=== PATIENT | female | born 2000 | race Caucasian/White ===

== ENCOUNTER 2025-06-19 07:20 | Inpatient (IN) ==
[2025-06-19] MEDS ORDERED: LIDOCAINE 1% LOCAL 20 ML VIAL INFIL PRN (17:39)
[2025-06-19] MEDS ORDERED: OXYTOCIN 30 UNITS/NSS 30 UNITS/500 ML BAG IV PRN (17:39)
--- NOTE | 2025-06-19 18:19 | History & Physical Report ---
Date of Service June 19, 2025 Assessment & Plan (1) Gestational diabetes: Plan: Poorly compliant patient with limited care Daily marijuana use has been set up for elective induction due to a high census we were unable to start this in the morning and the patient requested dinner on arrival will start induction when able Admission and Anticipated Discharge Date Admission Date: June 19, 2025 History of Present Illness Primary Care Provider: NO PCP [facility] [address] [place] [address] Obstetrics Visit Signed Patient: JENY KOEHLER Service Date: 06/18/25 MR#: [id number] Ref Phy: Jean-Paul Pillai Acct ID:[id number] Kathy Phy: PCP,NO Date: 2000 Location: [facility] cc: Jean-Paul Pillai CRNP~ *NOTICE TO RECEIVING DEMOCRAT/AGENCY This information is strictly Confidential and protected under [place] law. [place] law prohibits you from making any further disclosure of this information unless further disclosure is expressly permitted by the written consent of the person to whom it pertains or is authorized by law. A general authorization for the release of medical or other information is not sufficient for this purpose. Physician Practice accepts no responsibility if the information is made available to any other person, INCLUDING THE PATIENT. Medical Credit Product Analyst Credit Product Analyst Determination Visit Includes a Sensitive Exam of the Pt/Pt Requested: Yes Pt Informed of [facility]'s Recommendation for a Medical Credit Product Analyst: Yes Presence of a Medical Credit Product Analyst: Accepts Visit SHERI Calculator Estimated Delivery Date Method Current WG Current Estimate 06/24/25 LMP (Certain) 39w 1d Other Estimates 06/30/25 Ultrasound #1 38w 2d LMP: 09/17/24 : 3 Full term: 1 Premature: 0 Total Number of Induced Abortions: 0 Total Number of Spontaneous Abortions: 1 Ectopics: 0 Multiple births: 0 Number of Living Children: 1 and Delivery Plans Transfer into care at 33+ weeks--poor pnc Marijuana use--nausea, anxiety/depression was told ok in by her prior OB --discussed risks and rec d/c. Fob "hole in heart" has not had echo yet unable to schedule d/t late getstational age upn MATTHEW (? echo) Hx seizures none in 3 years Hx of MRSA Considering sterilization MA- FORM SIGNED 05/16/2025 Hepatitis B non-immune Allergies Allergy/AdvReac Type Severity Reaction Status Date / Time No Known Allergies Allergy Verified 06/18/25 14:28 Home Medications Medication Instructions Recorded Confirmed Type ferrous sulfate 1 tab PO DAILY 05/08/25 06/18/25 History promethazine 25 mg tablet 25 mg PO TID PRN nausea and 05/16/25 06/18/25 Rx vomiting #20 tabs blood sugar diagnostic (Accu-Chek #150 ea 05/24/25 06/18/25 Rx Guide test strips) blood-glucose meter (Accu-Chek #1 ea 05/24/25 06/18/25 Rx Guide Glucose Meter) lancets (Accu-Chek Softclix #100 ea 05/24/25 06/18/25 Rx Lancets) Patient History Medical History (Updated 06/15/25 @ 21:33 by Azra Presley RN) PTSD (post-traumatic stress disorder) Depression with anxiety Person under investigation for COVID-19 Seizure Varicella vaccine Surgical History S/P wisdom tooth extraction Family History Grandmother (Maternal) Myocardial infarction Breast cancer Denies family history of Colon cancer Ovarian cancer Prostate cancer Social History Smoking Status: Current every day smoker Tobacco Type: Cigarettes packs per day: 1; Cigarettes Per Day: 2; Second Hand Exposure: Yes; Do You Dip or Chew Tobacco: No; Hx Alcohol Use: No Hx Substance Use: Yes Last Used Substance: Days (ago) Substance Use Type Other:: 1 Preferred Language: Occitan Communication Ability: Effective Visual Impairment: No Limitations Hearing Ability: Normal Education Department Registrar Required: No Beliefs That Will Affect Care: None marital status: Single marital status details: jasmina Adrian (21) Mother: Nel Koehler Current Living Situation: Family Current Living Situation Comment: brother, mother, fiance, daughter current occupational status: unemployed Feels Safe at Home: Yes Dental Care, Regularly: Yes Physical Activity Frequency: Does not Exercise Assistive Devices: Glasses Physical Exam Constitutional: WD/WN, vitals as above well developed and well nourished Respiratory: normal respiratory effort, lungs clear to auscultation normal respiratory effort Cardiovascular: RRR, no murmur, no edema Gastrointestinal (Abdomen): normal bowel sounds, soft, nontender, no hepatosplenomegaly Results & Data Vital Signs (Past 12 Hours) Vital Signs Pulse BP Pulse Ox 06/19/25 18:11 82 100 06/19/25 18:05 76 104/67 Code Status & VTE Plan VTE Prophylaxis Plan VTE Prophylaxis will be ordered: No Coding Level of Care Code None Diagnoses Gestational diabetes O24.419
[2025-06-19 18:39] LABS: Hematocrit (blood only) 25.9 % (37.0-47.0); Hemoglobin 8.6 g/dl (12.0-16.0); Mean Corpuscular Hemoglobin 28.7 pg (25.0-34.0); Mean Corpuscular Volume 86.3 fL (80.0-100.0); Platelet Count 218 K/uL (130-400); RDW Standard Deviation 42.1 fL (36.4-46.3); Red Blood Count 3.00 M/uL (4.20-5.40); White Blood Count 8.12 K/ul (4.8-10.8)
[2025-06-19] MEDS: CALCIUM CARBONATE 500 MG CHEWABLE TAB ONE (18:47)
[2025-06-19] MEDS: LACTATED RINGER'S 1,000 ML IV PRN (19:33)
[2025-06-19] MEDS: CALCIUM CARBONATE 500 MG CHEWABLE TAB PO PRN (23:33)
[2025-06-20] MEDS: OXYTOCIN 30 UNITS/NSS 30 UNITS/500 ML BAG IV PRN ×2 (00:54→14:34)
[2025-06-20] MEDS: ONDANSETRON INJ 2 MG/ML 2 ML VIAL ONE (04:56)
[2025-06-20] MEDS: ONDANSETRON INJ 2 MG/ML 2 ML VIAL IV STA (05:06)
--- NOTE | 2025-06-20 07:44 | Anesthesiology Consultation ---
Date of Service June 20, 2025 Assessment & Plan Chart Review Chart Review: Patient NOT seen in Pre Admission Testing and Acceptable Risk for Labor Epidural Consults Requested medical & cardiac ASA ASA2 Proposed Anesthesia Anesthesia Type: Labor Epidural Risk / Benefits Reviewed With: PT / POA / Parent / Guardian, Accepts Plan and Informed Consent Obtained History Height/Weight Height: 5 ft 2 in Weight: 79.379 kg Allergies Allergy/AdvReac Type Severity Reaction Status Date / Time No Known Allergies Allergy Verified 06/18/25 14:28 Medications Home Medications Medication Instructions Recorded Confirmed Last Taken ferrous sulfate 1 tab PO DAILY 05/08/25 06/18/25 05/14/25 promethazine 25 mg tablet 25 mg PO TID PRN nausea and 05/16/25 06/18/25 Unknown vomiting #20 tabs blood sugar diagnostic (Accu-Chek #150 ea 05/24/25 06/18/25 Unknown Guide test strips) blood-glucose meter (Accu-Chek #1 ea 05/24/25 06/18/25 Unknown Guide Glucose Meter) lancets (Accu-Chek Softclix #100 ea 05/24/25 06/18/25 Unknown Lancets) Active Medications Generic Name Dose Route Start Last Admin Trade Name Freq PRN Reason Stop Dose Admin Calcium Carbonate 500 mg 06/19/25 20:00 06/19/25 23:33 Calcium Carbonate 500 Mg Chewable Tab PO 07/19/25 19:59 500 mg Q4 PRN Administration Indigestion Lactated Ringer's 1,000 mls @ 125 mls/hr 06/19/25 17:39 06/20/25 05:17 Lr IV 06/21/25 17:38 125 mls/hr .Q8H PRN Administration L&D Protocol Protocol Oxytocin 30 units in 500 mls @ 11 mls/hr 06/19/25 19:36 06/20/25 06:59 Pitocin 30 Units/Nss IV 06/21/25 19:35 0.66 units/hr .Q24H PRN 11 mls/hr Labor Induction/Augmentation Titration Protocol 0.66 UNITS/HR NPO Date Last Intake of Fluids: 06/20/25 Time Last Intake of Fluids: 07:00 Date Last Intake of Solids: 06/19/25 Time Last Intake of Solids: 18:00 Past Medical History Medical History PTSD (post-traumatic stress disorder) Depression with anxiety Person under investigation for COVID-19 Seizure Varicella vaccine Exercise / Class Metabolic Activity 1 > 8 Run/Swim/Ski/Tennis Past Family History Family History Grandmother (Maternal) Myocardial infarction Breast cancer Denies family history of Colon cancer Ovarian cancer Prostate cancer Past Surgical History Surgical History S/P wisdom tooth extraction Past Anesthesia History No Hx of Anesthesia Complications and No Family Hx of Anesthesia Complications History of PONV No Hx of PONV and No Hx of Motion Sickness Social History Smoking Status: Never smoker Smoking cigarettes per day: 2 Do You Dip or Chew Tobacco: No Hx Alcohol Use: No Hx Substance Use: Yes substance use type: marijuana Substance Use Type Other:: 1 Last Used Substance: Days (ago) Last Used Substance Other:: "a couple weeks ago" Review of Systems ROS Unobtainable: All systems reviewed & are unremarkable except as noted in HPI & below Constitutional: see below Physical Exam Vital Signs Last Vital Signs Temp 36.8 C 06/20/25 03:50 Pulse 74 06/20/25 07:12 Resp 18 06/20/25 07:00 BP 98/59 L 06/20/25 07:12 Pulse Ox 100 06/19/25 20:06 ENMT Mouth: no TMJ abnormality Thyromental Distance: > or= 3.5 Finger Breadths Mallampati Class: II Neck normal visual inspection and trachea midline; neck extension not limited Respiratory normal respiratory effort Auscultation: lungs clear to auscultation bilaterally Cardiovascular Rate/Rhythm: regular rate and regular rhythm Heart Sounds: no murmur Musculoskeletal Spine: normal cervical ROM Extremities: full ROM of extremities Neurologic moves all extremities Psychiatric Orientation: alert and oriented x 3 Testing Laboratory Results 06/19/25 18:24
[2025-06-20 07:58] LABS: Appearance Urine Clear (Clear); Glucose Urine UA Negative (Negative)
[2025-06-20] MEDS: BUPIVACAINE 0.25% PF 30 ML VIAL ONE (08:01)
[2025-06-20] MEDS: fentANYL 2 MCG/ML BUPIVacaine 0.125%-NSS 100ML BAG ONE (08:01)
[2025-06-20] MEDS: LIDOCAINE 2%/EPINEPHRINE 1:200,000 20 ML PF ONE (08:02)
[2025-06-20] MEDS ORDERED: NALOXONE HCL 1 MG in SODIUM CHLORIDE 0.9% 1,000 ML IV PRN (08:16)
[2025-06-20] MEDS ORDERED: ROPIVACAINE 0.5% PF 5 MG/ML 20 ML VIAL EPI PRN (08:16)
[2025-06-20] MEDS ORDERED: NALBUPHINE HCL INJ 10 MG/ML AMP IV PRN (08:16)
[2025-06-20] MEDS ORDERED: fentANYL 2 MCG/ML BUPIVacaine 0.125%-NSS 100ML BAG EPI PRN (08:16)
[2025-06-20] MEDS ORDERED: diphenhydrAMINE 50 MG/ML VIAL IV PRN (08:16)
[2025-06-20] MEDS ORDERED: NALOXONE HCL 0.4 MG/1 ML VIAL/CARP IV PRN (08:16)
[2025-06-20] MEDS ORDERED: LIDOCAINE 2% MPF LOCAL 5 ML VIAL EPI PRN (08:16)
[2025-06-20] MEDS ORDERED: SODIUM CHLORIDE 0.9% PF INJ 10 ML VIAL EPI PRN (08:16)
[2025-06-20] MEDS ORDERED: BUPIVACAINE 0.25% PF 30 ML VIAL EPI PRN (08:16)
[2025-06-20] MEDS: BUPIVACAINE 0.25% PF 30 ML VIAL EPI STA (08:27)
[2025-06-20] MEDS: SODIUM CHLORIDE 0.9% PF INJ 10 ML VIAL EPI STA (08:28)
[2025-06-20] MEDS: LIDOCAINE 2%/EPINEPHRINE 1:200,000 20 ML PF EPI STA (08:28)
[2025-06-20 08:33] LABS: Amphetamines+Metham, Urine Neg (Neg); MDMA (Ecstacy), Urine Neg (Neg); Marijuana, Urine Pos (Neg)
[2025-06-20] MEDS: ONDANSETRON INJ 2 MG/ML 2 ML VIAL IV PRN (10:44)
--- NOTE | 2025-06-20 15:38 | Labor Progress Brief Note ---
Date of Service June 20, 2025 Subjective Presented to bedside for recurrent variable decelerations. Pitocin discontinued and an IUPC and FSE placed. Assessment & Plan (1) Gestational diabetes: Plan: Presented bedside for recurrent variable decelerations. Good variability noted. Pitocin discontinued which showed improvement of the decelerations. Will continue to monitor. Having adequate cervical change. FSE and IUPC placed. Vitals within normal limit Gestational diabetes mellitus control: diet-controlled Trimester: third trimester Qualified Code(s): O24.410 - Gestational diabetes mellitus in , diet controlled (2) Encounter for induction of labor: Admission and Anticipated Discharge Date Admission Date: June 19, 2025 Physical Exam Genitourinary: Manual OB Exam: + cervical dilation 5 cm, + cervical effacement 50%, + station -2 and + amniotic fluid clear OB Exam Monitor Tracing: + external FHT monitor used, + external uterine monitor used, + category I, + category II, + normal FHT variability and + variable decelerations Results & Data Vital Signs (Past 12 Hours) Vital Signs Temp Pulse Resp BP Pulse Ox 06/20/25 15:34 61 91/51 L 06/20/25 15:32 60 99 06/20/25 15:27 62 99 06/20/25 15:22 64 97 06/20/25 15:18 93 H 101/62 06/20/25 15:17 78 97 06/20/25 15:16 67 06/20/25 15:16 75 96/59 L 86 L 06/20/25 15:12 74 97 06/20/25 15:10 77 83 L 06/20/25 15:07 66 100 06/20/25 15:05 65 86 L 06/20/25 15:04 62 89/53 L 06/20/25 15:02 64 94 06/20/25 15:00 22 06/20/25 15:00 22 06/20/25 14:58 99 H 85 L 06/20/25 14:57 77 99 06/20/25 14:53 69 86 L 06/20/25 14:52 74 99 06/20/25 14:49 94 H 97/53 L 06/20/25 14:47 94 H 93 06/20/25 14:46 68 83 L 06/20/25 14:42 95 H 97 06/20/25 14:37 97 H 98 06/20/25 14:33 83 111/61 06/20/25 14:32 72 97 06/20/25 14:30 18 06/20/25 14:30 18 06/20/25 14:27 96 H 100 06/20/25 14:22 65 99 06/20/25 14:19 106 H 104/63 06/20/25 14:17 122 H 95 06/20/25 14:12 133 H 91 06/20/25 14:10 96 H 84 L 06/20/25 14:07 65 99 06/20/25 14:05 74 111/65 06/20/25 14:04 76 83/49 L 06/20/25 14:03 92 H 82/48 L 06/20/25 14:02 83 95 06/20/25 14:00 22 06/20/25 14:00 22 06/20/25 13:57 67 100 06/20/25 13:52 99 06/20/25 13:52 78 06/20/25 13:52 90 87 L 06/20/25 13:48 77 95/57 L 06/20/25 13:47 63 100 06/20/25 13:42 88 94 06/20/25 13:41 37.0 C 06/20/25 13:37 70 100 06/20/25 13:32 73 98 06/20/25 13:31 74 88 L 06/20/25 13:30 22 06/20/25 13:30 22 06/20/25 13:27 62 100 06/20/25 13:22 68 99 06/20/25 13:19 71 106/56 L 06/20/25 13:18 84 84 L 06/20/25 13:17 82 85 L 06/20/25 13:12 68 100 06/20/25 13:07 76 100 06/20/25 13:03 86 104/56 L 06/20/25 13:02 85 100 06/20/25 13:01 94 H 87 L 06/20/25 12:57 75 98 06/20/25 12:52 100 06/20/25 12:52 91 H 06/20/25 12:52 70 87 L 06/20/25 12:48 112 H 110/57 L 06/20/25 12:47 116 H 100 06/20/25 12:42 90 99 09/04/25 12:37 82 88 L 06/20/25 12:35 81 98/56 L 06/20/25 12:33 70 87 L 06/20/25 12:31 77 100 06/20/25 12:30 18 06/20/25 12:30 18 06/20/25 12:28 68 87 L 06/20/25 12:26 59 L 100 06/20/25 12:21 69 99 06/20/25 12:18 67 101/60 06/20/25 12:16 71 100 06/20/25 12:11 71 100 06/20/25 12:06 71 99 06/20/25 12:03 74 97/60 L 06/20/25 12:01 58 L 99 06/20/25 12:00 20 06/20/25 12:00 20 06/20/25 11:56 69 98 06/20/25 11:51 66 100 06/20/25 11:48 63 102/65 06/20/25 11:46 62 100 06/20/25 11:41 68 99 06/20/25 11:36 63 100 06/20/25 11:33 68 101/67 06/20/25 11:31 65 100 06/20/25 11:30 20 06/20/25 11:30 20 06/20/25 11:26 59 L 95 06/20/25 11:21 61 97 06/20/25 11:18 63 109/71 06/20/25 11:16 75 96 06/20/25 11:11 59 L 99 06/20/25 11:06 69 100 06/20/25 11:03 75 103/59 L 06/20/25 11:01 65 100 06/20/25 11:00 20 06/20/25 11:00 20 06/20/25 10:56 67 100 06/20/25 10:55 65 89 L 06/20/25 10:51 74 100 06/20/25 10:48 61 91/54 L 06/20/25 10:46 66 100 06/20/25 10:43 66 90/52 L 06/20/25 10:41 78 100 06/20/25 10:38 61 96/55 L 06/20/25 10:36 63 99 06/20/25 10:34 58 L 95/55 L 09/04/25 10:31 65 100 06/20/25 10:30 18 06/20/25 10:30 18 06/20/25 10:29 58 L 90/55 L 06/20/25 10:27 60 87/50 L 06/20/25 10:26 61 98 06/20/25 10:21 36.9 C 71 99 06/20/25 10:20 76 88 L 06/20/25 10:18 69 108/64 06/20/25 10:16 82 98 06/20/25 10:13 88 103/68 06/20/25 10:11 69 100 06/20/25 10:08 71 101/58 L 06/20/25 10:06 72 99 06/20/25 10:05 81 87 L 06/20/25 10:03 90 107/69 06/20/25 10:01 72 97 06/20/25 10:00 18 06/20/25 10:00 18 06/20/25 09:56 63 98 06/20/25 09:53 81 102/57 L 06/20/25 09:51 77 97 06/20/25 09:48 74 95/51 L 06/20/25 09:46 76 98 06/20/25 09:45 18 06/20/25 09:45 18 06/20/25 09:44 72 93/55 L 06/20/25 09:41 62 96 06/20/25 09:39 63 96/59 L 06/20/25 09:36 65 96 06/20/25 09:35 64 93/62 L 06/20/25 09:31 67 94 06/20/25 09:28 60 96/58 L 06/20/25 09:26 65 96 06/20/25 09:23 60 93/57 L 06/20/25 09:21 61 96 06/20/25 09:18 64 93/59 L 06/20/25 09:16 62 96 06/20/25 09:15 18 06/20/25 09:15 18 06/20/25 09:13 56 L 92/56 L 06/20/25 09:11 61 95 06/20/25 09:08 67 91/57 L 06/20/25 09:06 65 96 06/20/25 09:03 63 94/60 L 06/20/25 09:01 76 98 06/20/25 08:59 70 106/61 06/20/25 08:56 74 100 06/20/25 08:53 72 106/56 L 06/20/25 08:51 71 98 06/20/25 08:49 62 106/57 L 06/20/25 08:48 83 88/52 L 06/20/25 08:46 73 98 06/20/25 08:45 18 06/20/25 08:45 18 06/20/25 08:44 69 78/42 L 06/20/25 08:41 98 H 99 06/20/25 08:39 99 H 113/66 06/20/25 08:36 74 98 06/20/25 08:33 107 H 114/58 L 06/20/25 08:31 71 98 06/20/25 08:30 18 06/20/25 08:30 18 06/20/25 08:28 92 H 101/56 L 06/20/25 08:26 73 99 06/20/25 08:23 85 101/61 06/20/25 08:21 69 99 06/20/25 08:17 75 107/58 L 06/20/25 08:16 68 100 06/20/25 08:15 18 06/20/25 08:15 18 06/20/25 08:15 71 18 106/70 06/20/25 08:13 89 111/67 06/20/25 08:11 100 06/20/25 08:11 63 06/20/25 08:11 60 109/63 06/20/25 08:10 18 06/20/25 08:10 18 06/20/25 08:09 63 99/60 L 06/20/25 08:07 60 105/60 06/20/25 08:06 84 100 06/20/25 08:05 86 20 111/64 06/20/25 08:03 75 112/66 06/20/25 08:01 72 110/68 100 06/20/25 07:59 75 105/62 06/20/25 07:58 88 126/80 06/20/25 07:56 87 99 06/20/25 07:55 82 123/85 06/20/25 07:54 83 59 L 06/20/25 07:51 84 100 06/20/25 07:30 18 06/20/25 07:30 18 06/20/25 07:15 18 06/20/25 07:15 36.9 C 18 06/20/25 07:12 74 98/59 L 06/20/25 07:00 18 06/20/25 07:00 18 06/20/25 06:56 71 94/54 L 06/20/25 06:00 18 06/20/25 06:00 06/20/25 05:55 63 91/54 L 06/20/25 05:00 18 06/20/25 05:00 18 06/20/25 04:55 81 102/69 06/20/25 03:56 76 113/68 06/20/25 03:50 18 06/20/25 03:50 36.8 C 18 Coding Level of Care Code None Diagnoses Diet controlled gestational diabetes mellitus (GDM) in third trimester O24.410 Gestational diabetes mellitus control: diet-controlled Trimester: third trimester Encounter for induction of labor Z34.90
[2025-06-20] MEDS ORDERED: DIPHTHER/TETAN/PERTUS Vaccine (Tdap, Adol/Adult) 0.5mL IM ONE (16:26)
[2025-06-20] MEDS ORDERED: HYDROCORTISONE ACETATE 25 MG SUPP PR PRN (16:26)
[2025-06-20] MEDS ORDERED: OXYTOCIN 30 UNITS/NSS 30 UNITS/500 ML BAG IV PRN (16:26)
--- NOTE | 2025-06-20 16:42 | Delivery Summary ---
Vaginal Delivery Summary Date of Service June 20, 2025 Vaginal Delivery Summary Patient progressed to 10 cm dilated, 100% effaced, -1 station posterior intact perineum with epidural anesthesia delivery of viable with weight and Apgars pending. Head of the delivered without difficulty quickly followed by shoulders and body. was noted to have good tone without spontaneous cry and after approximately 30 seconds of stimulation the cord was doubly clamped and cut taken to the waiting nursery staff. Cord blood obtained and attention turned deliver the placenta was delivered intact three- vessel cord gentle cord traction. Inspection of perineum vagina cervix there is noted to be no lacerations. Sponge and instrument counts are correct at the completion of the case. Both mother and stable in the immediate postdelivery timeframe. No complications noted and blood loss per QBL [facility] Vaginal Delivery Charge Delivery Type Details: [facility]
[2025-06-20] MEDS: SODIUM CHLORIDE 0.9% PF INJ 10 ML VIAL ONE (17:44)
[2025-06-20] MEDS: IBUPROFEN 600 MG TAB PO PRN (17:55)
--- NOTE | 2025-06-20 18:02 | Anesthesia Procedure Note ---
Date of Service June 20, 2025 Anesthesia Post Epidural Note Vital Signs Vital Signs: Temp Pulse Resp BP Pulse Ox 37.0 C 85 16 101/65 97 06/20/25 13:41 06/20/25 17:54 06/20/25 17:09 06/20/25 17:54 06/20/25 16:23 Notes Mental Status: alert / awake / arousable and participated in evaluation Nausea / Vomiting: adequately controlled Pain: adequately controlled Airway Patency, RR, SpO2: stable & adequate BP & HR: stable & adequate Hydration State: stable & adequate Neuraxial Anesthesia: was administered and sensory block is resolving Anesthetic Complications: no major complications apparent Epidural: Removed without complications and With tip intact
[2025-06-20] MEDS: SERTRALINE HCL 50 MG TABLET PO SCH (18:42)
[2025-06-20] MEDS: ACETAMINOPHEN 325 MG TAB PO PRN (21:22)
[2025-06-20] MEDS: DOCUSATE SODIUM 100 MG CAP PO SCH (21:24)
--- NOTE | 2025-06-20 22:03 | Hospitalist Progress Note ---
Date of Service June 20, 2025 Assessment & Plan (1) care following vaginal delivery: Admission and Anticipated Discharge Date Admission Date: June 19, 2025 Subjective Pt is a 35 year old female , at 39 wks 2 dys. She is post op 1 day after an induced labor and delivery. Pt is resting comfortably in the AM Pt further denies any symptoms of SOB, Chest Pain, NVD, and/or LE Edema or Pain. Results & Data Results & Data Vital Signs (Past 12 Hours) Vital Signs Temp Pulse Pulse Resp BP BP Pulse Ox 06/20/25 20:00 36.6 C 78 18 106/74 99 06/20/25 19:09 75 116/68 06/20/25 19:05 36.8 C 16 06/20/25 18:54 77 113/56 L 06/20/25 18:39 95 H 108/55 L 06/20/25 18:24 78 105/65 06/20/25 18:09 18 06/20/25 18:09 76 104/71 06/20/25 17:54 85 101/65 06/20/25 17:39 16 06/20/25 17:39 85 107/67 06/20/25 17:24 63 113/77 06/20/25 17:09 16 06/20/25 17:09 54 L 96/58 L 06/20/25 16:54 20 06/20/25 16:54 68 103/63 06/20/25 16:39 16 06/20/25 16:39 59 L 96/60 L 06/20/25 16:24 22 06/20/25 16:24 76 106/61 06/20/25 16:23 78 97 06/20/25 16:18 77 97 06/20/25 16:13 130 H 98 06/20/25 16:11 26 H 06/20/25 16:11 26 H 06/20/25 16:08 132 H 89 L 06/20/25 16:04 99 H 105/63 06/20/25 16:02 133 H 100 06/20/25 15:57 78 100 06/20/25 15:54 22 06/20/25 15:54 22 06/20/25 15:52 82 98 06/20/25 15:49 71 119/76 06/20/25 15:47 61 97 06/20/25 15:42 91 H 89 L 06/20/25 15:39 80 84 L 06/20/25 15:37 66 97 06/20/25 15:34 61 91/51 L 06/20/25 15:32 60 99 06/20/25 15:30 18 06/20/25 15:30 18 06/20/25 15:27 62 99 06/20/25 15:22 64 97 06/20/25 15:18 93 H 101/62 06/20/25 15:17 78 97 06/20/25 15:16 67 06/20/25 15:16 75 96/59 L 86 L 06/20/25 15:12 74 97 06/20/25 15:10 77 83 L 06/20/25 15:07 66 100 06/20/25 15:05 65 86 L 06/20/25 15:04 62 89/53 L 06/20/25 15:02 64 94 06/20/25 15:00 22 06/20/25 15:00 22 06/20/25 14:58 99 H 85 L 06/20/25 14:57 77 99 06/20/25 14:53 69 86 L 06/20/25 14:52 74 99 06/20/25 14:49 94 H 97/53 L 06/20/25 14:47 94 H 93 06/20/25 14:46 68 83 L 06/20/25 14:42 95 H 97 06/20/25 14:37 97 H 98 06/20/25 14:33 83 111/61 06/20/25 14:32 72 97 06/20/25 14:30 18 06/20/25 14:30 18 06/20/25 14:27 96 H 100 06/20/25 14:22 65 99 06/20/25 14:19 106 H 104/63 06/20/25 14:17 122 H 95 06/20/25 14:12 133 H 91 06/20/25 14:10 96 H 84 L 06/20/25 14:07 65 99 06/20/25 14:05 74 111/65 06/20/25 14:04 76 83/49 L 06/20/25 14:03 92 H 82/48 L 06/20/25 14:02 83 95 06/20/25 14:00 22 06/20/25 14:00 22 06/20/25 13:57 67 100 06/20/25 13:52 99 06/20/25 13:52 78 06/20/25 13:52 90 87 L 06/20/25 13:48 77 95/57 L 06/20/25 13:47 63 100 06/20/25 13:42 88 94 06/20/25 13:41 37.0 C 06/20/25 13:37 70 100 06/20/25 13:32 73 98 06/20/25 13:31 74 88 L 06/20/25 13:30 22 06/20/25 13:30 22 06/20/25 13:27 62 100 06/20/25 13:22 68 99 06/20/25 13:19 71 106/56 L 06/20/25 13:18 84 84 L 06/20/25 13:17 82 85 L 06/20/25 13:12 68 100 06/20/25 13:07 76 100 06/20/25 13:03 86 104/56 L 06/20/25 13:02 85 100 06/20/25 13:01 94 H 87 L 06/20/25 12:57 75 98 06/20/25 12:52 100 06/20/25 12:52 91 H 06/20/25 12:52 70 87 L 06/20/25 12:48 112 H 110/57 L 06/20/25 12:47 116 H 100 06/20/25 12:42 90 99 06/20/25 12:37 82 88 L 06/20/25 12:35 81 98/56 L 06/20/25 12:33 70 87 L 06/20/25 12:31 77 100 06/20/25 12:30 18 06/20/25 12:30 18 06/20/25 12:28 68 87 L 06/20/25 12:26 59 L 100 06/20/25 12:21 69 99 06/20/25 12:18 67 101/60 06/20/25 12:16 71 100 06/20/25 12:11 71 100 06/20/25 12:06 71 99 06/20/25 12:03 74 97/60 L 06/20/25 12:01 58 L 99 06/20/25 12:00 20 06/20/25 12:00 20 09/04/25 11:56 69 98 06/20/25 11:51 66 100 06/20/25 11:48 63 102/65 06/20/25 11:46 62 100 06/20/25 11:41 68 99 06/20/25 11:36 63 100 06/20/25 11:33 68 101/67 06/20/25 11:31 65 100 06/20/25 11:30 20 06/20/25 11:30 20 06/20/25 11:26 59 L 95 06/20/25 11:21 61 97 06/20/25 11:18 63 109/71 06/20/25 11:16 75 96 06/20/25 11:11 59 L 99 06/20/25 11:06 69 100 06/20/25 11:03 75 103/59 L 06/20/25 11:01 65 100 06/20/25 11:00 20 06/20/25 11:00 20 06/20/25 10:56 67 100 06/20/25 10:55 65 89 L 06/20/25 10:51 74 100 06/20/25 10:48 61 91/54 L 06/20/25 10:46 66 100 06/20/25 10:43 66 90/52 L 06/20/25 10:41 78 100 06/20/25 10:38 61 96/55 L 06/20/25 10:36 63 99 06/20/25 10:34 58 L 95/55 L 06/20/25 10:31 65 100 06/20/25 10:30 18 06/20/25 10:30 18 06/20/25 10:29 58 L 90/55 L 06/20/25 10:27 60 87/50 L 06/20/25 10:26 61 98 06/20/25 10:21 36.9 C 71 99 06/20/25 10:20 76 88 L 06/20/25 10:18 69 108/64 06/20/25 10:16 82 98 06/20/25 10:13 88 103/68 06/20/25 10:11 69 100 06/20/25 10:08 71 101/58 L 06/20/25 10:06 72 99 06/20/25 10:05 81 87 L 06/20/25 10:03 90 107/69 06/20/25 10:01 72 97 06/20/25 10:00 18 06/20/25 10:00 18 O2 Del Method 06/20/25 20:00 Room Air 06/20/25 19:09 06/20/25 19:05 06/20/25 18:54 06/20/25 18:39 06/20/25 18:24 06/20/25 18:09 06/20/25 18:09 06/20/25 17:54 06/20/25 17:39 06/20/25 17:39 06/20/25 17:24 06/20/25 17:09 06/20/25 17:09 06/20/25 16:54 06/20/25 16:54 06/20/25 16:39 06/20/25 16:39 06/20/25 16:24 06/20/25 16:24 06/20/25 16:23 06/20/25 16:18 06/20/25 16:13 06/20/25 16:11 06/20/25 16:11 06/20/25 16:08 06/20/25 16:04 06/20/25 16:02 06/20/25 15:57 06/20/25 15:54 06/20/25 15:54 06/20/25 15:52 06/20/25 15:49 06/20/25 15:47 06/20/25 15:42 06/20/25 15:39 06/20/25 15:37 06/20/25 15:34 06/20/25 15:32 06/20/25 15:30 06/20/25 15:30 06/20/25 15:27 06/20/25 15:22 06/20/25 15:18 06/20/25 15:17 06/20/25 15:16 06/20/25 15:16 06/20/25 15:12 06/20/25 15:10 06/20/25 15:07 06/20/25 15:05 06/20/25 15:04 06/20/25 15:02 06/20/25 15:00 06/20/25 15:00 06/20/25 14:58 06/20/25 14:57 06/20/25 14:53 06/20/25 14:52 06/20/25 14:49 06/20/25 14:47 06/20/25 14:46 06/20/25 14:42 06/20/25 14:37 06/20/25 14:33 06/20/25 14:32 06/20/25 14:30 06/20/25 14:30 06/20/25 14:27 06/20/25 14:22 06/20/25 14:19 06/20/25 14:17 06/20/25 14:12 06/20/25 14:10 06/20/25 14:07 06/20/25 14:05 06/20/25 14:04 06/20/25 14:03 06/20/25 14:02 06/20/25 14:00 06/20/25 14:00 06/20/25 13:57 06/20/25 13:52 06/20/25 13:52 06/20/25 13:52 06/20/25 13:48 06/20/25 13:47 06/20/25 13:42 06/20/25 13:41 06/20/25 13:37 06/20/25 13:32 06/20/25 13:31 06/20/25 13:30 06/20/25 13:30 06/20/25 13:27 06/20/25 13:22 06/20/25 13:19 06/20/25 13:18 06/20/25 13:17 06/20/25 13:12 06/20/25 13:07 06/20/25 13:03 06/20/25 13:02 06/20/25 13:01 06/20/25 12:57 06/20/25 12:52 06/20/25 12:52 06/20/25 12:52 06/20/25 12:48 06/20/25 12:47 06/20/25 12:42 06/20/25 12:37 06/20/25 12:35 06/20/25 12:33 06/20/25 12:31 06/20/25 12:30 06/20/25 12:30 06/20/25 12:28 06/20/25 12:26 06/20/25 12:21 06/20/25 12:18 06/20/25 12:16 06/20/25 12:11 06/20/25 12:06 06/20/25 12:03 06/20/25 12:01 06/20/25 12:00 06/20/25 12:00 06/20/25 11:56 06/20/25 11:51 06/20/25 11:48 06/20/25 11:46 06/20/25 11:41 06/20/25 11:36 06/20/25 11:33 06/20/25 11:31 06/20/25 11:30 06/20/25 11:30 06/20/25 11:26 06/20/25 11:21 06/20/25 11:18 06/20/25 11:16 06/20/25 11:11 06/20/25 11:06 06/20/25 11:03 06/20/25 11:01 06/20/25 11:00 06/20/25 11:00 06/20/25 10:56 06/20/25 10:55 06/20/25 10:51 06/20/25 10:48 06/20/25 10:46 06/20/25 10:43 06/20/25 10:41 06/20/25 10:38 06/20/25 10:36 06/20/25 10:34 06/20/25 10:31 06/20/25 10:30 06/20/25 10:30 06/20/25 10:29 06/20/25 10:27 06/20/25 10:26 06/20/25 10:21 06/20/25 10:20 06/20/25 10:18 06/20/25 10:16 06/20/25 10:13 06/20/25 10:11 06/20/25 10:08 06/20/25 10:06 06/20/25 10:05 06/20/25 10:03 06/20/25 10:01 06/20/25 10:00 06/20/25 10:00
[2025-06-21] MEDS: BENZOCAINE 20% SPRY 85 APPLN/85 GM CAN EXT PRN (03:38)
--- NOTE | 2025-06-21 06:17 | Obstetrical Progress Note ---
Date of Service <Gwendolyn Nicole MD - Last Filed: 06/21/25 06:27> June 21, 2025 Assessment & Plan <Gwendolyn Nicole MD - Last Filed: 06/21/25 06:27> (1) care following vaginal delivery: Plan Stable routine care. Breast feeding. Rhesus Positive. Rubella Immune. Hepatitis B - Non Immune. <Servando Mason MD - Last Filed: 06/21/25 07:37> (1) care following vaginal delivery: Subjective <wGendolyn Nicole MD - Last Filed: 06/21/25 06:27> Ambulation: ambulating normally Voiding: no voiding problems Passing Gas:: Yes Diet Tolerance:: regular diet Lochia:: Small Feeding Type:: breast feeding Current Pain Level(1-10): 3 Pt is a 24 yo Female, G3, P1, at 38 wks 5dys. She is post op 1 day after induced labor and delivery. Pt is resting comfortably in the AM. Pt further denies any symptoms of SOB, Chest Pain, NVD, and /or LE Edema or pain Review of Systems All systems reviewed & are unremarkable except as noted in HPI & below i. Denies fever, chills, sweats ii. Denies SOB, difficulty breathing, chest pain, palpitations, chest pressure iii. Denies breast pain. iv. Denies Dysuria v. Denies headache or changes in vision. Physical Exam <Gwendolyn Nicole MD - Last Filed: 06/21/25 06:27> Constitutional WD/WN, vitals as above Respiratory normal respiratory effort, lungs clear to auscultation Cardiovascular RRR, no murmur, no edema Gastrointestinal (Abdomen) normal bowel sounds, soft, nontender, no hepatosplenomegaly Skin no rashes, warm and dry Psychiatric A+Ox3, euthymic affect Genitourinary As per Dr. Mason's attestation Results & Data <Gwendolyn Nicole MD - Last Filed: 06/21/25 06:27> Vital Signs (Past 12 Hours) Vital Signs Temp Pulse Pulse Resp BP BP Pulse Ox 06/21/25 03:24 36.7 C 66 18 97/60 L 98 06/20/25 23:55 36.4 C L 67 18 110/73 99 06/20/25 20:00 36.6 C 78 18 106/74 99 06/20/25 19:40 06/20/25 19:09 75 116/68 06/20/25 19:05 36.8 C 16 06/20/25 18:54 77 113/56 L 06/20/25 18:39 95 H 108/55 L 06/20/25 18:24 78 105/65 O2 Del Method 06/21/25 03:24 Room Air 06/20/25 23:55 Room Air 06/20/25 20:00 Room Air 06/20/25 19:40 Room Air 06/20/25 19:09 06/20/25 19:05 06/20/25 18:54 06/20/25 18:39 06/20/25 18:24 Supervising Physician <Servando Mason MD - Last Filed: 06/21/25 07:37> Co-Signing Physician Notes Patient seen with resident and agree with the above findings and plan. Patient doing well and denying any concerns. Continue routine care Resident Activity Tracking <Gwendolyn Nicole MD - Last Filed: 06/21/25 06:27> Resident Involvement: Resident Care Provided Care Provided: OB Delivery
[2025-06-21 07:12] LABS: Hematocrit (blood only) 27.1 % (37.0-47.0); Hemoglobin 8.9 g/dl (12.0-16.0)
[2025-06-21] MEDS: PRENATAL VITAMIN 1 TAB PO SCH (09:18)
[2025-06-21] MEDS: FERROUS SULFATE 325 MG TAB PO SCH (09:18)
--- NOTE | 2025-06-22 06:39 | Obstetrical Progress Note ---
Date of Service <Gwendolyn Nicole MD - Last Filed: 06/22/25 08:20> June 22, 2025 Assessment & Plan <Gwendolyn Nicole MD - Last Filed: 06/22/25 08:20> (1) care following vaginal delivery: Plan -Stable routine care. Breast feeding. Rhesus positive. Rubella Immune. Hepatitis B Non Reactive. Continue to Monitor. <Shweta Osman MD, FACOG - Last Filed: 06/22/25 08:34> (1) care following vaginal delivery: Subjective <Gwendolyn Nicole MD - Last Filed: 06/22/25 08:20> Ambulation: ambulating normally Voiding: no voiding problems Passing Gas:: Yes Diet Tolerance:: regular diet Lochia:: Small Current Pain Level(1-10): 3 PPD 2 Review of Systems All systems reviewed & are unremarkable except as noted in HPI & below i. Denies fever, chills, sweats ii. Denies SOB, difficulty breathing, chest pain, palpitations, chest pressure iii. Denies breast pain. iv. Denies Dysuria v. Denies headache or changes in vision. Physical Exam <Gwendolyn Nicole MD - Last Filed: 06/22/25 08:20> Constitutional WD/WN, vitals as above Respiratory normal respiratory effort, lungs clear to auscultation Cardiovascular RRR, no murmur, no edema Gastrointestinal (Abdomen) normal bowel sounds, soft, nontender, no hepatosplenomegaly On palpation fundus is firm at the umbilicus, with involution, at approximately 1cm/day down from original height Skin no rashes, warm and dry Psychiatric A+Ox3, euthymic affect Results & Data <Gwendolyn Nicole MD - Last Filed: 06/22/25 08:20> Vital Signs (Past 12 Hours) Vital Signs Temp Pulse Resp BP Pulse Ox O2 Del Method 06/21/25 23:45 37.0 C 78 16 110/73 98 Room Air Supervising Physician <Shweta Osman MD, FACOG - Last Filed: 06/22/25 08:34> Co-Signing Physician Notes Resident Physician Supervision Note: I interviewed and examined the patient. Discussed with Dr. Woldeyesus and agree with findings and plan as documented in the note. Any exceptions or clarifications are listed here: Doing well. Plan d/c. INstructions given Documented By: Shweta Osman MD, FACOG
[2025-06-22 10:03] VITALS: BP 121/85; PULSE 88; RESP 18; TEMP 98.1; O2SAT 100
--- NOTE | 2025-06-22 14:30 | Communication Note ---
Date of Service: June 22, 2025 Pt requesting zoloft rx to be sent, was started on it while here on and not est w/ pcp yet. Has been on it short term in the past due to hx ppd with last . Rx sent, referral placed for pcp as well so that rx can be taken over by pcp once established
[2025-06-25 13:17] LABS: Marijuana Quant, GCMS Urine 61 ng/mL (<5)
== END 2025-06-22 15:10 | disposition home or self-care (01) | DRG 806 ==
LOC: 4S1 16:35 → 4E2 06-20 20:12